=== PATIENT | female | born 1955 | race Caucasian/White ===

== ENCOUNTER 2018-01-13 07:49 | Day surgery (SDC) | payer OTHER ==
[2018-01-13] MEDS ORDERED: fentaNYL 100 MCG/2 ML SDV IV ONE (07:50)
[2018-01-13] MEDS ORDERED: Ondansetron 4 MG/2 ML SDV IV ONE (07:50)
[2018-01-13] MEDS ORDERED: Midazolam 1 MG/ML 2 ML SDV IV ONE (07:50)
[2018-01-13] MEDS ORDERED: Ketorolac 30 MG/ML SDV IVPUSH ONE (07:50)
[2018-01-13] MEDS ORDERED: Lidocaine 2% 20 ML MDV INJECT ONE (07:50)
[2018-01-13] MEDS ORDERED: Rocuronium 50 MG/5 ML Vial IV ONE (07:50)
[2018-01-13] MEDS ORDERED: Glycopyrrolate 0.2 MG/ML 2 ML SDV IV ONE (07:50)
[2018-01-13] MEDS ORDERED: Propofol 200 MG/20 ML SDV IV ONE (07:50)
[2018-01-13] MEDS ORDERED: Neostigmine Methylsulfate 10 MG/10 ML MDV IV ONE (07:50)
[2018-01-13] MEDS ORDERED: Bupivacaine 0.25% 10 ML SDV INJECT ONE ×2 (07:50→10:23)
[2018-01-13] MEDS ORDERED: Lactated Ringers 1,000 ML IV SCH (08:45)
[2018-01-13] MEDS ORDERED: Sodium Chloride 0.9% 10 ML Syringe IV PRN (08:55)
[2018-01-13] MEDS ORDERED: ceFAZolin 1 GM in Sodium Chloride 0.9% 50 ML IV ONE (09:30)
[2018-01-13] MEDS ORDERED: Bupivacaine 0.25% 10 ML SDV ONE (09:30)
--- NOTE | 2018-01-14 09:25 | OR ---
DATE: 01/13/2018 PREOPERATIVE DIAGNOSIS: Umbilical hernia. POSTOPERATIVE DIAGNOSIS: Umbilical hernia. PROCEDURE: Open umbilical hernia repair. ANESTHESIA: General. ESTIMATED BLOOD LOSS: None. SPECIMEN: None. INDICATION FOR PROCEDURE: This 62-year-old female has a nonsymptomatic but enlarging umbilical hernia. She has elected for an elective repair. PROCEDURE IN DETAIL: After adequate preparation, an infraumbilical semicircular incision was made and carried down to the linea alba. The hernia sac was dissected free from the overlying umbilical skin and the hernia contents, which was only preperitoneal fat, was reduced back down through the defect. This defect measured approximately 1.5 cm in diameter. Good fascial margins were seen. The defect was closed transversely using interrupted 0 Prolene sutures. Hemostasis was controlled. The subcutaneous tissue was closed with Vicryl and the skin with Monocryl. [facility] /[id number]
--- NOTE | 2018-01-14 12:28 | EKG ---
01/13/2018 - REHAN MEZA - TIME: 8:10 a.m. FINDINGS: As per my reading, normal sinus rhythm at 71. [facility] /[id number]
== END 2018-01-13 12:55 | disposition home or self-care (01) ==
LOC: DL.SDS 07:49 → EDSTATUS 09:30 → DL.SDS 12:55
PROVIDERS: ATTEND Surgery
DX: K42.9 Umbilical hernia without obstruction or gangrene (principal); I11.0 Hypertensive heart disease with heart failure; I50.9 Heart failure, unspecified; J45.909 Unspecified asthma, uncomplicated; E66.9 Obesity, unspecified; Z68.30 Body mass index [BMI] 30.0-30.9, adult; F41.9 Anxiety disorder, unspecified; E78.5 Hyperlipidemia, unspecified; Z79.899 Other long term (current) drug therapy; Z88.5 Allergy status to narcotic agent; Z88.8 Allergy status to other drugs, medicaments and biological substances; Z88.2 Allergy status to sulfonamides
CPT/HCPCS: 49585; 93005; J0690; J1885; J2250; J2405; J2704; J2710; J3010; J7050; J7120; J3490